=== PATIENT | male | born 1980 | race Caucasian/White ===

== ENCOUNTER 2020-10-07 02:27 | Emergency (ER) | payer OTHER | END 2020-10-07 04:13 | disposition left against medical advice (07) | LOC: ER1 02:27 | DX: Z53.21 Procedure and treatment not carried out due to patient leaving prior to being seen by health care provider (principal) ==

== ENCOUNTER 2021-10-22 00:13 | Emergency (ER) | payer OTHER ==
[2021-10-22 00:57] LABS: HEMOGLOBIN 16.9 gm/dl (14.0-17.5); RED BLOOD COUNT 5.38 M/UL (4.20-5.50); WHITE BLOOD COUNT 10.9 K/UL (4.5-11.0)
[2021-10-22 01:34] LABS: BUN/CREATININE RATIO 12 (0-10)
== END 2021-10-22 03:54 | disposition home or self-care (01) ==
LOC: ER1 00:13
PROVIDERS: Family Medicine
DX: I48.91 Unspecified atrial fibrillation (principal); E87.6 Hypokalemia; Z20.822 Contact with and (suspected) exposure to COVID-19; I10 Essential (primary) hypertension
CPT/HCPCS: 71045; 80053; 80307; 81001; 82550; 82553; 83605; 83690; 83735; 83880; 84439; 84443; 84484; 85025; 85610; 93005; 96374; 99285; G0480; U0002